=== PATIENT | male | born 1965 ===

== ENCOUNTER 2020-06-17 05:36 | Emergency (ER) | payer BC, SELFPAY ==
[2020-06-17 06:20] VITALS: BP 126/84; PULSE 67; RESP 18; TEMP 36.6; O2SAT 98; BMI 25.8
[2020-06-17 06:25] VITALS: BP 114/87; PULSE 75; RESP 18; TEMP 36.6; O2SAT 97
--- NOTE | 2020-06-17 06:39 | CT_ITS ---
EXAMINATION: CT ABDOMEN AND PELVIS WITHOUT CONTRAST CLINICAL INFORMATION: Flank pain COMPARISON: 03/17/2018 TECHNIQUE: Multidetector volumetric imaging was performed from the superior aspect of the liver through the pubic symphysis. Sagittal and coronal reformatted images were obtained on the technologist's workstation. This CT examination was performed using dose optimization techniques as appropriate, variously including the following: *Automated exposure control *Adjustment of mA and/or kV according to patient size (this includes techniques or standardized protocols for targeted exams where dose is matched to indication/reason for exam; i.e. extremities or head) *Use of iterative reconstruction technique DLP: 537 mGy-cm FINDINGS: LUNG BASES: The visualized lung bases are unremarkable. LIVER, GALLBLADDER, AND BILIARY TREE: The liver is normal in size, shape, and attenuation. No focal hepatic lesion or biliary ductal dilatation is present. The gallbladder is unremarkable with no evidence of radiopaque gallstones, gallbladder wall thickening, or obvious pericholecystic inflammatory changes. PANCREAS: Unremarkable. SPLEEN: Unremarkable. ADRENAL GLANDS: Unremarkable. KIDNEYS AND URETERS: Tiny bilateral nonobstructing renal calculi. On the right, at least 3 tiny stones 1 to 2 mm size upper local calyces. 1 mm left upper pole calyceal nonobstructing stone. No perinephric abnormality. Tiny low-density lesion right kidney statistically a small cyst appearance is similar to baseline. BLADDER: Unremarkable. GASTROINTESTINAL TRACT: The small and large bowel are unremarkable. The appendix is unremarkable. ABDOMINAL WALL: No significant hernia is appreciated. LYMPH NODES: Normal. VASCULAR: Unremarkable. PELVIC VISCERA: Unremarkable. OSSEOUS STRUCTURES: Unremarkable. CT/CT abdomen pelvis wo con IMPRESSION: Nonobstructing right greater than left tiny renal calculi similar to baseline. No new findings.
--- NOTE | 2020-06-17 06:39 | ED.BACK ---
HPI - Back Pain/Injury General Chief Complaint: General Medical Stated Complaint: BACK PAIN Time Seen by Provider: 06/17/20 06:39 Source: patient Mode of arrival: ambulatory Limitations: no limitations History of Present Illness MD elicited complaint: back pain Pertinent past history: prior back pain Onset (ago): week(s) (2) Timing: constant Severity: moderate Similar Symptoms Previously: Yes Quality: burning Location: lumbar spine Radiation: none Exacerbating factors: movement Relieving factors: none Context: unknown Associated symptoms: denies other symptoms Treatments prior to arrival: heat therapy Work related injury: No Related Data Previous Rx's Medication Instructions Recorded cyclobenzaprine 10 mg PO TID PRN #14 tab 06/17/20 ibuprofen 600 mg PO Q6H PRN #30 tab 06/17/20 lidocaine 1 patch TOPICAL DAILY PRN #10 ea 06/17/20 Allergies Allergy/AdvReac Type Severity Reaction Status Date / Time No Known Allergies Allergy Verified 06/17/20 06:19 [No Known Allergies*] Review of Systems Review of Systems: Constitutional : No Weight loss, No Fever, No Chills, ENT/Mouth : No Hearing loss, No Ear Pain, No Nasal Congestion, No Sinus Pain, No Hoarseness, No sore throat, No Rhinorrhea, No Swallowing Difficulty Cardiovascular : No Chest Pain, No SOB Respiratory : No Cough, No Dyspnea Gastrointestinal : No Nausea, No Vomiting, No Diarrhea, No abdominal Pain, No Hematochezia, No Melena Genitourinary : No Dysuria, No Urinary Frequency, No Hematuria, No Urinary Incontinence, Musculoskeletal : positive back pain Skin : No Skin Lesions, No rash Neuro : No Weakness, No Numbness, No Paresthesias, no loss of bowel or bladder incontinence, no saddle anesthesia PMFSH Past Medical History Attestation statement: The following information was validated with the patient. Medical History (Updated 06/17/20 @ 07:26 by Carla Pierre DO) Back pain Kidney stones No known health problems Social History Social History Alcohol intake: never Smoking Status: Current every day smoker Use of substances other than those prescribed or required for medical reasons: No Advance Directives: No Physical Exam Vital Signs: Vital Signs: Last Vital Signs Temp 97.8 F 06/17/20 06:25 Pulse 75 06/17/20 06:25 Resp 18 06/17/20 06:25 BP 114/87 06/17/20 06:25 Pulse Ox 97 06/17/20 06:25 Body Mass Index 25.8 Appearance: Alert. Oriented X3. No acute distress. Eyes: Pupils equal, round and reactive to light. ENT: Pharynx normal. Neck: Normal inspection. Neck supple. CVS: Normal heart rate and rhythm. Pulses normal. Respiratory: No respiratory distress. Breath sounds normal. Abdomen: Soft and nontender. Back: ttp along bilateral lumbar paraspinal area Skin: Skin warm and dry. Normal skin color. Normal skin turgor. Extremities: No lower extremity edema. No calf ttp Neuro: Oriented X 3. No motor deficit. No sensory deficit. Course Course Course Narrative: no acute findings, stable for DC MDM - Back Pain/Injury MDM Narrative Medical decision making narrative: 54 yo male with hx of prior back pain comes in with atraumatic lower back pain - no b/b incontinence, no saddle anesthesia, no IVDA, no ac therapy - wants a CT scan to evalutae his kidneys though no symptoms - imaging ordered, seems MSK to me Discharge Plan Discharge Clinical Impression: Strain of lumbar region Qualifiers: Encounter type: initial encounter Qualified Code(s): S39.012A - Strain of muscle, fascia and tendon of lower back, initial encounter Patient Disposition: Home, Self-Care Instructions: Acute Low Back Pain (ED) Additional Instructions: return to ED for any worsening symptoms or concerns CT scan findings - stones are not the source of your pain IMPRESSION: Nonobstructing right greater than left tiny renal calculi similar to baseline. No new findings. Prescriptions: New cyclobenzaprine 10 mg tablet 10 mg PO TID PRN (Reason: muscle spasm) Qty: 14 RF: 0 lidocaine 4 % adhesive patch,medicated 1 patch topical DAILY PRN (Reason: pain) Qty: 10 RF: 0 ibuprofen 600 mg tablet 600 mg PO Q6H PRN (Reason: pain) Qty: 30 RF: 0 Referrals: Yusra Olivares MD [Primary Care Provider] - 2 days (if not better ) Stand Alone Forms: Work/School Release
== END 2020-06-17 07:52 | disposition home or self-care (01) ==
PROVIDERS: Emergency Provider Emergency Medicine; PCP Internal Medicine
DX: S39.012A Strain of muscle, fascia and tendon of lower back, initial encounter (principal); R10.2 Pelvic and perineal pain; F17.200 Nicotine dependence, unspecified, uncomplicated; X58.XXXA Exposure to other specified factors, initial encounter; Y93.9 Activity, unspecified; Y92.9 Unspecified place or not applicable; Y99.9 Unspecified external cause status; Z71.6 Tobacco abuse counseling; Z79.899 Other long term (current) drug therapy
CPT/HCPCS: 74176; 99284

== ENCOUNTER 2020-06-17 08:16 | Outpatient (REF) | payer BC, SELFPAY | END 2020-06-17 08:17 | disposition home or self-care (01) | LOC: HO.LAB 08:16 | PROVIDERS: Visit Provider Internal Medicine | DX: Z20.828 Contact with and (suspected) exposure to other viral communicable diseases (principal) | CPT/HCPCS: C9803; U0003 ==

== ENCOUNTER 2020-07-28 16:02 | Outpatient (REF) | payer BC, SELFPAY | END 2020-07-28 16:03 | disposition home or self-care (01) | LOC: HO.LAB 16:02 | PROVIDERS: Visit Provider Internal Medicine | DX: Z20.828 Contact with and (suspected) exposure to other viral communicable diseases (principal) | CPT/HCPCS: C9803; U0003 ==

== ENCOUNTER 2020-08-28 16:23 | Outpatient (REF) | payer BC, SELFPAY | END 2020-08-28 16:24 | disposition home or self-care (01) | LOC: HO.LAB 16:23 | PROVIDERS: Visit Provider Internal Medicine | DX: Z20.822 Contact with and (suspected) exposure to COVID-19 (principal) | CPT/HCPCS: 36415; C9803; U0003 ==

== ENCOUNTER → 2020-09-17 10:17 | Outpatient (BNVA) | payer BC, SELFPAY | PROVIDERS: Visit Provider Urology ==

== ENCOUNTER → 2020-10-14 08:21 | Outpatient (BNVA) | payer BC, SELFPAY | PROVIDERS: PCP Internal Medicine; Visit Provider Urology ==

== ENCOUNTER 2020-11-16 07:02 | Outpatient (REF) | payer BC, SELFPAY ==
[2020-11-16 07:54] LABS: MANUAL DIFF FLAG NO
[2020-11-16 08:07] LABS: Basophils Percent Auto 0.4 % (0-2); Eosinophils Absolute Auto 0.1 X10*3/uL (0.0-0.4); Eosinophils Percent Auto 0.9 % (0-4); Hematocrit 48.2 % (42-52); Hemoglobin 15.9 g/dl (14.0-18.0); Imm Gran Abs Auto 0.01 X10*3/uL (0.00-0.03); Imm Gran Pct Auto 0.2 % (0.0-0.4); Lymphocytes Absolute Auto 1.5 X10*3/uL (1.2-4.9); Lymphocytes Percent Auto 27.6 % (20-40); Mean Corpuscular Hemoglobin 30.6 pg (27.0-33.0); Mean Corpuscular Volume 92.7 fL (80-98); Mean Platelet Volume 10.5 fL (9.4-12.4); Monocytes Absolute Auto 0.5 X10*3/uL (0.1-1.2); Monocytes Percent Auto 9.6 % (2-11); Neutrophils Absolute Auto 3.3 X10*3/uL (2.0-8.3); Neutrophils Percent Auto 61.3 % (45-73); Platelet Count 205 X10*3/uL (160-400); Red Cell Distribution Width 13.5 % (11.0-16.0); White Blood Count 5.4 X10*3/uL (4.8-10.8)
[2020-11-16 08:16] LABS: Anion Gap 13 (12-20); Blood Urea Nitrogen 23 mg/dL (9-16); Calcium 8.9 mg/dL (8.4-10.2); Carbon Dioxide 26 mmol/L (22-29); Chloride 105 mmol/L (96-108); Cholesterol 224 mg/dL; Estimated Glomerular Filt Rate > 60; Glucose Fasting 99 mg/dL (60-99); HDL Cholesterol 35 mg/dL; LDL Cholesterol Calculated 170 mg/dl; Potassium 4.4 mmol/L (3.3-5.1); Sodium 140 mmol/L (135-145); Triglycerides 96 mg/dL
[2020-11-16 08:39] LABS: Prostate Specific Antigen 0.65 ng/mL (<0.05-4.0)
[2020-11-16 09:18] LABS: Glucose Urine UA NEG (NEG); Leukocyte Esterase Urine NEG (NEG); Nitrite Urine NEG (NEG); Specific Gravity - Urine 1.025 (1.005-1.025); Urine Blood NEG (NEG); Urine Ketones NEG (NEG); Urine Protein NEG (NEG-TRACE)
[2020-11-16 09:33] LABS: Appearance Urine CLEAR; Color Urine YELLOW
== END 2020-11-16 07:03 | disposition home or self-care (01) ==
LOC: HO.LAB 07:02
PROVIDERS: Nurse Practitioner Family; PCP Internal Medicine; Visit Provider Urology
DX: R30.0 Dysuria (principal); N40.1 Benign prostatic hyperplasia with lower urinary tract symptoms; N13.8 Other obstructive and reflux uropathy; N32.0 Bladder-neck obstruction; R21 Rash and other nonspecific skin eruption; Z12.5 Encounter for screening for malignant neoplasm of prostate
CPT/HCPCS: 36415; 80048; 80061; 81003; 84153; 85025

== ENCOUNTER 2020-11-16 15:12 | Outpatient (REF) | payer BC, SELFPAY ==
--- NOTE | ~2020-11-16 | US_ITS ---
EXAMINATION: US PELVIS LIMITED (BLADDER) CLINICAL INFORMATION: Poor urinary stream. COMPARISON: CT abdomen and pelvis 06/17/2020. X-ray abdomen KUB 02/06/2020. TECHNIQUE: Real-time imaging of the bladder. FINDINGS: BLADDER: The bladder wall is slightly trabeculated. No stone or mass is seen. Bilateral ureteral jets are demonstrated. Prevoid bladder volume is 411 mL. Postvoid bladder volume is 23.9 mL. Prostate volume 16.1 mL. US/US bladder IMPRESSION: Slightly trabeculated bladder wall. No significant post void bladder residual.
== END 2020-11-16 15:13 | disposition home or self-care (01) ==
LOC: HO.US 15:12
PROVIDERS: Visit Provider Urology
DX: N32.0 Bladder-neck obstruction (principal); R39.12 Poor urinary stream
CPT/HCPCS: 76857

== ENCOUNTER → 2020-11-24 15:17 | Outpatient (BNVA) | payer BC, SELFPAY | PROVIDERS: PCP Internal Medicine; Visit Provider Urology | DX: R39.12 Poor urinary stream (principal); R39.11 Hesitancy of micturition; N32.0 Bladder-neck obstruction | CPT/HCPCS: 52000; 52332 ==

== ENCOUNTER 2021-08-06 09:42 | Outpatient (REF) | payer BC, SELFPAY | END 2021-08-06 09:43 | disposition home or self-care (01) | LOC: HO.LAB 09:42 | PROVIDERS: Visit Provider Internal Medicine | DX: Z13.89 Encounter for screening for other disorder (principal) ==

== ENCOUNTER 2022-01-04 05:55 | Outpatient (REF) | payer OTHER, SELFPAY ==
--- NOTE | ~2022-01-04 | XR_ITS ---
EXAMINATION: XR ABDOMEN KUB CLINICAL INDICATION: Renal calculus. COMPARISON: CT scan of 06/17/2020. TECHNIQUE: AP view of the abdomen. FINDINGS: The bowel gas pattern is normal with no evidence of ileus or obstruction. There is a 3 mm calcification seen overlying the upper pole of the right kidney. There is a 2 mm calcification seen overlying the lower pole of the right kidney. No definite calculi are seen overlying the shadow of the left kidney. No definite calculi are identified along the expected paths of the ureters. Psoas muscle contours intact. There is some spurring along the right side of the lumbar vertebra L3 through L5. There is some narrowing about the right lateral aspects of the L4-L5 disc space. There is left-sided facet arthropathy noted at L5-S1. Sacroiliac joints unremarkable. No destructive bony lesions identified. XR/XR KUB IMPRESSION: Right nephrolithiasis.
--- NOTE | ~2022-01-04 | XR_ITS ---
EXAMINATION: XR KNEE, LEFT CLINICAL INFORMATION: Left knee pain. COMPARISON: None. TECHNIQUE: Four views of the left knee. FINDINGS: There is severe narrowing of the medial joint space compartment with marginal sclerosis and spurring. The lateral joint space is maintained. There is a small left knee effusion. There is some degenerative spurring seen about the patellofemoral joint with what appears to be some narrowing of the lateral facet. The lateral view is off lateral. There is a bony density seen adjacent to the right medial condyle which may be related to previous medial collateral ligament injury. XR/XR knee LT 3V IMPRESSION: Severe degenerative change of the medial joint space compartment without evidence of acute fracture identified. Small left knee effusion.
[2022-01-04 08:03] LABS: Alanine Aminotransferase 27 U/L (0-40); Albumin Level 3.9 g/dL (3.5-5.0); Alkaline Phosphatase 68 U/L (39-117); Anion Gap 9 (12-20); Aspartate Amino Transferase 18 U/L (5-37); Bilirubin Total 0.5 mg/dL (0.0-1.0); Blood Urea Nitrogen 22 mg/dL (9-16); Carbon Dioxide 27 mmol/L (22-29); Chloride 108 mmol/L (96-108); Cholesterol 218 mg/dL; Estimated Glomerular Filt Rate > 60; Glucose Fasting 95 mg/dL (60-99); HDL Cholesterol 36 mg/dL; LDL Cholesterol Calculated 168 mg/dl; Potassium 4.3 mmol/L (3.3-5.1); Sodium 140 mmol/L (135-145); Total Protein 6.6 g/dL (6.5-8.0); Triglycerides 74 mg/dL
== END 2022-01-04 05:56 | disposition home or self-care (01) ==
LOC: HO.LAB 05:55
PROVIDERS: PCP Internal Medicine; Visit Provider Internal Medicine
DX: N32.0 Bladder-neck obstruction (principal); N20.0 Calculus of kidney; M25.562 Pain in left knee; E78.5 Hyperlipidemia, unspecified
CPT/HCPCS: 36415; 73562; 74018; 80053; 80061

== ENCOUNTER 2022-01-24 07:32 | Outpatient (REF) | payer OTHER, SELFPAY ==
--- NOTE | ~2022-01-24 | XR_ITS ---
EXAMINATION: XR KNEE AP STANDING CLINICAL INFORMATION: Pain. COMPARISON: Right knee radiographs dated 01/04/2022. TECHNIQUE: AP bilateral standing view of the knees was obtained. FINDINGS: Bony mineralization is normal. The right medial joint space compartment is mildly narrowed, and the lateral joint space compartment is well-maintained. There is mild peripheral osteophyte formation of the medial joint space compartment. The left medial joint space compartment is markedly narrowed, and the lateral joint space compartment is well-maintained. There is mild peripheral osteophyte formation of the medial joint space compartment. No fracture or dislocation is seen. There is a moderate varus configuration of the left knee. XR/XR knee standing BI IMPRESSION: 1. There is mild osteoarthritic change of the medial joint space compartment of the right knee. 2. There is marked osteoarthritic change of the medial joint space compartment the left knee. This is a secondary moderate varus configuration.
== END 2022-01-24 07:33 | disposition home or self-care (01) ==
LOC: HO.HOSX 07:32
PROVIDERS: Visit Provider Physician Assistant
DX: M25.569 Pain in unspecified knee (principal)
CPT/HCPCS: 73565

== ENCOUNTER 2022-02-18 15:32 | Outpatient (REF) | payer OTHER, SELFPAY ==
--- NOTE | ~2022-02-18 | CT_ITS ---
EXAMINATION: CT CHEST SCREENING CLINICAL INFORMATION: Nicotine dependence. COMPARISON: None. TECHNIQUE: Multidetector volumetric CT imaging of the chest is performed without contrast using low dose technique. Additional 2D coronal and sagittal reformatted images and axial 3D maximum intensity projection (MIP) images are generated on the CT workstation. This CT examination was performed using dose optimization techniques as appropriate, variously including the following: *Automated exposure control *Adjustment of mA and/or kV according to patient size (this includes techniques or standardized protocols for targeted exams where dose is matched to indication/reason for exam; i.e. extremities or head) *Use of iterative reconstruction technique DLP: 50 mGy-cm FINDINGS: LUNGS: The lungs are well-expanded and clear of acute pneumonic process. There is 3 mm nodule right lung apex image 62/6 and a 6 mm nodule pleural-based right middle lobe axial image 382/6. No additional nodules are seen. Focal atelectasis in the lingula. MEDIASTINUM: The thyroid lobes are symmetrical. The central trachea and bronchi are widely patent. No abnormal size lymph nodes seen. No abnormal size mediastinal or hilar lymph nodes seen. There is no pericardial effusion. PLEURA: There is no pleural effusion. No pleural mass or thickening. AXILLA: No lymphadenopathy. UPPER ABDOMEN: Visualized liver, spleen and pancreas unremarkable. There is a nonobstructive 5 mm radiopaque calculi upper pole right kidney. OSSEOUS STRUCTURES: No aggressive lytic or sclerotic process seen. There is moderate ventral spondylosis mid and lower dorsal spine. CT/CT lung screening IMPRESSION: Small pulmonary nodules. No abnormal lymphadenopathy. Nonobstructive upper pole right renal calculi. ASSESSMENT: Lung-RADS category 2: Benign RECOMMENDATION: Low-dose annual CT chest.
== END 2022-02-18 15:33 | disposition home or self-care (01) ==
LOC: HO.CT 15:32
PROVIDERS: PCP Internal Medicine; Visit Provider Physician Assistant Medical
DX: Z12.2 Encounter for screening for malignant neoplasm of respiratory organs (principal); F17.210 Nicotine dependence, cigarettes, uncomplicated
CPT/HCPCS: 71271; G0296

== ENCOUNTER 2023-01-14 08:45 | Outpatient (REF) | payer OTHER, SELFPAY ==
[2023-01-14 10:14] LABS: Alanine Aminotransferase 27 U/L (0-40); Albumin Level 4.2 g/dL (3.5-5.0); Alkaline Phosphatase 66 U/L (39-117); Anion Gap 13 (12-20); Aspartate Amino Transferase 22 U/L (5-37); Bilirubin Total 0.7 mg/dL (0.0-1.0); Blood Urea Nitrogen 21 mg/dL (9-16); Calcium 9.2 mg/dL (8.4-10.2); Carbon Dioxide 25 mmol/L (22-29); Chloride 106 mmol/L (96-108); Cholesterol 199 mg/dL; Estimated Glomerular Filt Rate > 60; Glucose Fasting 94 mg/dL (60-99); HDL Cholesterol 36 mg/dL; LDL Cholesterol Calculated 149 mg/dl; Potassium 4.6 mmol/L (3.3-5.1); Sodium 139 mmol/L (135-145); Triglycerides 73 mg/dL
== END 2023-01-14 08:46 | disposition home or self-care (01) ==
LOC: HO.LAB 08:45
PROVIDERS: PCP Internal Medicine; Visit Provider Internal Medicine
DX: E78.5 Hyperlipidemia, unspecified (principal)
CPT/HCPCS: 36415; 80053; 80061

== ENCOUNTER 2023-03-01 15:06 | Outpatient (REF) | payer OTHER, SELFPAY ==
--- NOTE | ~2023-03-01 | CT_ITS ---
EXAMINATION: CT CHEST WITHOUT CONTRAST CLINICAL INFORMATION: Solitary pulmonary nodule COMPARISON: CT lung screening from 02/18/2022 TECHNIQUE: Multidetector volumetric CT imaging of the chest was done. Axial MIP volume rendering provided. Sagittal and coronal reformatted images were obtained. This CT examination was performed using dose optimization techniques as appropriate, variously including the following: *Automated exposure control *Adjustment of mA and/or kV according to patient size (this includes techniques or standardized protocols for targeted exams where dose is matched to indication/reason for exam; i.e. extremities or head) *Use of iterative reconstruction technique DLP: 164 mGy-cm FINDINGS: LUNGS/PLEURA: Redemonstration of 3 mm nodule in the anterior right lung apex (series 5, image 63). Stable pleural-based nodular focus along the anterior aspect of the right middle lobe measuring 6 mm (series 5, image 379) no no enlarged or suspicious pulmonary nodules or masses are noted. Central airways are patent. No thorax. No large pleural effusion. MEDIASTINUM: Heart is not enlarged. No pericardial effusion. No coronary artery calcifications are noted. Aorta is nonaneurysmal and demonstrates atherosclerotic calcifications. Main pulmonary artery is not enlarged. No lymphadenopathy. Visualized portions of the thyroid are unremarkable. AXILLA: No lymphadenopathy. UPPER ABDOMEN: Bilateral renal calculi are noted the largest measuring 4 mm in the right renal upper pole. OSSEOUS STRUCTURES: Mild multilevel degenerative changes of the thoracolumbar spine. CT/CT chest wo IV con IMPRESSION: 1. Redemonstration of 3 mm nodule in the anterior right lung apex. Stable pleural-based nodular focus along the anterior aspect of the right middle lobe measuring 6 mm. Continued follow-up as per Fleischner criteria. 2. No enlarged or suspicious pulmonary nodules or masses are noted. 3. Bilateral nephrolithiasis are noted the largest measuring 4 mm in the right renal upper pole. Various management parameters for solitary pulmonary nodules are in the literature. According to the Fleischner Society, recommendations for pulmonary nodules are as follows: According to the UPDATED 2017 Fleischner Society recommendations, the advised follow-up imaging for multiple solid nodules, the largest measuring 6 mm or greater, is: LOW RISK PATIENT: CT at 3-6 months, then consider CT at 18-24 months. HIGH RISK PATIENT: CT at 3-6 months, then at 18-24 months.
== END 2023-03-01 15:07 | disposition home or self-care (01) ==
LOC: HO.CT 15:06
PROVIDERS: PCP Internal Medicine; Visit Provider Internal Medicine
DX: R91.1 Solitary pulmonary nodule (principal)
CPT/HCPCS: 71250

== ENCOUNTER 2023-05-09 14:36 | Outpatient (AMB) | payer OTHER, SELFPAY ==
--- NOTE | 2023-05-09 14:41 | A.OFFVIS_ITS ---
Intake Vital Signs 05/09/23 14:42 Height 5 ft 8 in Weight 174 lb 2.643 oz BMI 26.5 BP 122/80 Blood Pressure Location Rt brachial Position Sitting Pulse 74 Pulse Source Doppler Pulse Oximetry (%) 97 Oxygen Delivery Method Room Air Intake Visit Reasons: pulm nodule Allergies atorvastatin Allergy (Unknown, Verified 05/09/23 14:45) memory loss HPI pulm nodule HPI Details 57-year-old gentleman, active 40 pack-ye ar smoker referred for evaluation of pulmonary nodules initially noted on lung screening scan in February of 2022, redemonstrated on CT chest in February of 2023. Patient states his brother has a history of thyroid cancer, otherwise there is no history of lung disease or cancers in the family. He denies any other pulmonary related concerns or complaints, particularly dyspnea on exertion, cough or sputum production. He does not have recent pulmonary function testing. [facility] Medical History Dyslipidemia Left knee pain Nephrolithiasis Personal history of nicotine dependence Tubular adenoma of colon (~2018) Surgical History History of colonoscopy Family History Father Chronic mental illness Alzheimers disease Mother Diabetes Paternal Grandmother Hypertension Diabetes Paternal Uncle Diabetes Hypertension Family/Other Chronic mental illness Social History (Updated 05/09/23 @ 14:46 by Susie Lam [facility]) Housing: Apartment Alcohol intake: never Patient Tobacco Use Status: Current everyday Tobacco user Tobacco use type: Cigarette Cigarettes Per Day: 10 Years Smoked: (onset 16yo, 1/2ppd x 40yrs, 20pyh) e-Cigarette/Vaping Use: Never Used Second Hand Smoke Exposure: No service: No Current occupational status: employed Current occupational exposures/hazards: No Cognitive needs: No Hearing needs: No Vision needs: Yes Review of Systems Const Denies daytime sleepiness, Denies excessive sweating, Denies fatigue, Denies fever(s), Denies lethargy, Denies malaise, Denies night sweats, Denies snoring and Denies weight loss Eyes Denies blurry vision and Denies itchy eyes ENT Denies nasal congestion, Denies post nasal drip, Denies sinus pain, Denies sinus pressure and Denies other ( Thrush) Card Denies chest pain, Denies pedal edema, Denies dyspnea, Denies orthopnea and Denies paroxysmal nocturnal dyspnea Resp Denies cough, Denies hemoptysis, Denies excessive phlegm production, Denies dyspnea, Denies snoring and Denies wheezing GI Denies abdominal pain and Denies heartburn Musc Denies myalgias, Denies arthralgias and Denies joint swelling Skin/Breast Denies rash Neuro Denies memory loss and Denies seizure-like activity Psych Denies abnormal sleep pattern, Denies anxiety and Denies memory loss Endo Denies excessive sweating, Denies fatigue and Denies heat intolerance Landen/Lymph Denies easy bruising Aller/Immun Denies itchy eyes, Denies seasonal rhinorrhea and Denies wheezing Physical Exam Vital Signs: Last Vital Signs Pulse 74 05/09/23 14:42 BP 122/80 05/09/23 14:42 Pulse Ox 97 05/09/23 14:42 Oxygen Delivery Method Room Air 05/09/23 14:42 BMI result Body Mass Index 26.5 Const General: no acute distress and alert Nutritional Appearance: not obese Orientation/consciousness: Other orientation findings ( oriented) HEENT Head: Yes atraumatic Eyes General: appearance normal, both eyes and all related structures Sclerae: sclerae normal EOM: EOMs intact bilaterally Neck Neck: Yes supple Lymphatic: no lymphadenopathy noted Resp Effort & Inspection: normal respiratory effort and no use of accessory muscles Auscultation: clear to auscultation bilaterally Cardio Rate: regular rate Rhythm: regular rhythm Heart sounds: no gallops, no murmurs and no rubs Skin General skin exam: other ( warm) Extrem General: No clubbing, No cyanosis and No edema Assessment & Plan Assessment & Plan (1) Pulmonary nodule: Code(s): R91.1 - Solitary pulmonary nodule Plan: Pulmonary nodules stable on follow-up CT chest 6 mm and under. Repeat CT chest in February of 2024. (2) Pulmonary emphysema: Code(s): J43.9 - Emphysema, unspecified Plan: Likely underlying pulmonary emphysema/COPD. Will obtain full PFT. Orders: Orders PFT pulmonary function test Today J43.9 - Emphysema, unspecified CT chest wo IV con 02/07/24 R91.1 - Solitary pulmonary nodule Coding Level of Care Code New Pt Level 4 (42577) Diagnoses Pulmonary nodule R91.1 Pulmonary emphysema J43.9
[2023-05-09 14:42] VITALS: BP 122/80; PULSE 74; O2SAT 97; BMI 26.5
== END 2023-05-09 15:07 | disposition home or self-care (01) ==
PROVIDERS: PCP Internal Medicine; Referring Provider Internal Medicine; Visit Provider Internal Medicine Pulmonary Disease
DX: R91.1 Solitary pulmonary nodule (principal); J43.9 Emphysema, unspecified
CPT/HCPCS: 99204

== ENCOUNTER → 2023-05-09 14:36 | Outpatient (BNVA) | payer OTHER, SELFPAY | PROVIDERS: PCP Internal Medicine; Visit Provider Internal Medicine Pulmonary Disease ==

== ENCOUNTER 2023-06-20 15:46 | Outpatient (REF) | payer OTHER, SELFPAY ==
--- NOTE | 2023-06-20 16:38 | PFT_ITS ---
Forced vital capacity 118%, FEV1 121%, CWD90-15 151%, and MVV 81%. Post bronchodilator therapy, there is no change. Total lung capacity 106%. Residual volume 98%. Diffusion capacity 89%. CONCLUSION: Normal pulmonary function test. No evidence of obstructive or restrictive pulmonary disorder. Also, no response to bronchodilator therapy. MD IRVIN Arredondo/SERGEL / [phone]
== END 2023-06-20 15:47 | disposition home or self-care (01) ==
LOC: HO.RESP 15:46
PROVIDERS: PCP Internal Medicine; Visit Provider Internal Medicine Pulmonary Disease
DX: J43.9 Emphysema, unspecified (principal)
CPT/HCPCS: 94010; 94727; 94729

== ENCOUNTER → 2023-06-20 16:38 | Outpatient (BNV) | payer OTHER, SELFPAY | PROVIDERS: PCP Internal Medicine; Visit Provider Internal Medicine | DX: J43.9 Emphysema, unspecified (principal) | CPT/HCPCS: 94060; 94727; 94729 ==

== ENCOUNTER 2024-01-23 16:54 | Outpatient (AMB) | payer OTHER, SELFPAY ==
[2024-01-23 17:00] VITALS: BP 118/80; BMI 27.4
--- NOTE | 2024-01-23 17:00 | A.OFFPC_ITS ---
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 Accompanied by: Self / Same As Patient Allergies atorvastatin Allergy (Unknown, Verified 01/23/24 17:07) memory loss Medication List - Last Reconciled 01/23/24 by Yusra Gonzalez MD No Known Home Meds Tobacco use date assessed: 01/23/24 Dental Screening Dental Screen Date: 01/23/24 Did you have a dental visit in the last 12 months?: Yes Did you have a dental problem in the last 6 months where you did not have access to dental care?: No Was dental information given to patient?: Patient has dentist HPI HPI Comments History of Present Illness Details This is a 58-year-old male that comes for his physical exam. Last c olonoscopy was 2019 and I will refer him through open access to another colonoscopy in due to tubular adenomas. No chest pain or shortness on breath. He has pulmonary emphysema and is follow by pulmonology. [facility] Medical History Personal history of nicotine dependence Tubular adenoma of colon (~2018) Nephrolithiasis Left knee pain Dyslipidemia Surgical History History of colonoscopy Family History (Updated 01/23/24 @ 17:16 by Yusra Gonzalez MD) Father Chronic mental illness Alzheimers disease Mother Diabetes Paternal Grandmother Hypertension Diabetes Paternal Uncle Diabetes Hypertension Family/Other Chronic mental illness Brother Cancer Social History Housing: Apartment Alcohol intake: never Patient Tobacco Use Status: Former Tobacco user Tobacco use type: Cigarette Cigarettes Per Day: 10 Years Smoked: (onset 16yo, 1/2ppd x 40yrs, 20pyh) Packs per year/per ci.00 e-Cigarette/Vaping Use: Never Used Second Hand Smoke Exposure: No service: No Current occupational status: employed Current occupational exposures/hazards: No Cognitive needs: No Hearing needs: No Vision needs: Yes Questionnaire PHQ-9 Over the last 2 weeks, how often have you been bothered by any of the following problems? 1. Little interest or pleasure in doing things: not at all 2. Feeling down, depressed, or hopeless: several days 3. Trouble falling or staying asleep, or sleeping too much: several days 4. Feeling tired or having little energy: not at all 5. Poor appetite or overeating: several days 6. Feeling bad about yourself - or that you are a failure or have let yourself or your family down: not at all 7. Trouble concentrating on things, such as reading the newspaper or watching te levision: not at all 8. Moving or speaking so slowly that other people could have noticed. Or the opposite - being so fidgety or restless that you have been moving around a lot more than usual: not at all 9. Thoughts that you would be better off or of hurting yourself in some way: not at all Total score: 3 Depression Screening Interpretation: Positive Depression Screening Follow-up: Existing condition and Follow-up Visit Requested Depression Screening Done: Yes 84750 - PHQ-9 Billing: Yes Source: Developed by Drs. Emeterio Knight, Mackenzie Fabian, Alvin Maria and colleagues, with an educational ashish from [employer]. Thrive Questionnaire Date Thrive assessed: 01/23/24 I am a: Patient What is your living situation today?: I have a steady place to live Within the past 12 months, did the food you bought not last and you didn't have the money to get more?: Never true Within the past 12 months, did you worry whether your food would run out before you got money to buy more?: Never true Do you have trouble paying for medicines?: No Do you have trouble getting transportation to medical appointments?: No Do you have trouble paying your heating and electricity bill?: No Do you have trouble taking care of your child, family member or friend?: No Do you have trouble with day-to-day activities such as bathing, preparing meals, shopping, managing finances, etc.?: No Are you currently unemployed and looking for a job?: No Are you interested in more education?: No Please select the resources that you would like help with: None Currently or been in a relationship where the following occur: no concerns reported THRIVE Score: 0 AUDIT C Alcohol Use Questionnaire (AUDIT-C) 1. How often do you have a drink containing alcohol?: Never Total Score: 0 Score Reviewed/Action Taken: No VEL-7 AMB Questionnaire VEL-7 Date VEL - 7 assessed: 01/23/24 Feeling nervous, anxious, or on edge: 1 = Several days Not being able to stop or control worryin = Not at all Worrying too much about different things: 1 = Several days Trouble relaxin = Not at all Being so restless that it is hard to sit still: 0 = Not at all Becoming easily annoyed or irritable: 0 = Not at all Feeling afraid as if something awful might happen: 0 = Not at all Total VEL-7 score (0-4 normal; 5-9 mild; 10-14 moderate; 15-21 severe): 2 Source: Developed by Drs. Emeterio Knight, Mackenzie Fabian, Alvin Maria and colleagues, with an educational ashish from [employer]. VEL-7 Assessment Billing VEL-7 Assessment Tool: VEL-7 Assessment 21763 Review of Systems Const All systems reviewed & are unremarkable except as noted in HPI and below Card Denies chest pain at rest, Denies chest pain with activity, Denies edema, Denies irregular heart rhythm, Denies claudication, Denies dyspnea, Denies dyspnea on exertion, Denies orthopnea, Denies paroxysmal nocturnal dyspnea and Denies slow heart rate Resp Denies cough, Denies dyspnea and Denies dyspnea on exertion GI Denies abdominal pain, Denies change in bowel habits, Denies excessive flatus, Denies nausea and Denies vomiting Denies urinary hesitancy, Denies urinary incontinence and Denies urinary urgency Physical exam (Primary Care) Vital Signs: Last Vital Signs BP 118/80 01/23/24 17:00 BMI result Body Mass Index 27.4 Tobacco/Smoking Status: Tobacco use Status Tobacco use date assessed 01/23/24 01/23/24 17:04 Patient Tobacco Use Status Former Tobacco user 01/23/24 17:04 Tobacco use type Cigarette 01/23/24 17:04 e-Cigarette/Vaping Use Never Used 01/23/24 17:04 PHQ-9: PHQ-9 Score PHQ-9: Total score 3 01/23/24 17:16 Depression Screening Interpretation: Positive Depression Screening Follow-up: Existing condition and Follow-up Visit Requested Thrive Assessment: Date of Thrive Assessment Date Thrive assessed 01/23/24 01/23/24 17:04 Currently or been in a relationship where the following occur: no concerns reported Const Orientation/consciousness: patient oriented x3 [facility] Head: Yes normal to inspection, Yes normocephalic and Yes atraumatic Ears: external ears normal Eyes General: appearance normal, both eyes and all related structures Eyelids: Yes eyelids normal Conjunctivae: conjunctivae normal Neck Neck: Yes normal visual inspection and Yes supple Resp Effort & Inspection: normal respiratory effort Auscultation: clear to auscultation bilaterally Cardio Jugular venous distension: no JVD Rate: regular rate Rhythm: regular rhythm Heart sounds: S1 normal heart sound present and S2 normal heart sound present GI Inspection: Yes normal to inspection Palpation (GI): Soft to palpation and nontender Auscultation: normal bowel sounds Skin General skin exam: no rashes or lesions noted Neuro General: patient oriented x3 and no focal motor deficits Extrem General: Yes full ROM Psych Appearance: grossly normal Assessment and Plan Assessment & Plan (1) Physical exam: Code(s): Z00.00 - Encounter for general adult medical examination without abnormal findings Plan: Repeat in a year. (2) Pulmonary emphysema: Code(s): J43.9 - Emphysema, unspecified Plan: Follow-up with pulmonology. Orders: Orders Lipid Panel Today E78.5 - Hyperlipidemia, unspecified Comprehensive [place]. Panel Fast Today J43.9 - Emphysema, unspecified Referrals Open Access Screening Colonoscopy Referral Z12.11 - Encounter for screening for malignant neoplasm of colon Coding Level of Care Code Est Pt Prev Care 40-64y(50827) Diagnoses Physical exam Z00.00 Pulmonary emphysema J43.9 Additional Codes VEL-7 Assessment Billing - VEL-7 Assessment Tool: VEL-7 Assessment [id number] ([id number]) Time Spent (min) 32
== END 2024-01-23 17:45 | disposition home or self-care (01) ==
PROVIDERS: PCP Internal Medicine; Visit Provider Internal Medicine
DX: Z00.00 Encounter for general adult medical examination without abnormal findings (principal); J43.9 Emphysema, unspecified
CPT/HCPCS: 99396

== ENCOUNTER 2024-02-12 07:35 | Outpatient (REF) | payer OTHER, SELFPAY ==
[2024-02-12 09:21] LABS: Alanine Aminotransferase 27 U/L (0-40); Albumin Level 4.1 g/dL (3.5-5.0); Alkaline Phosphatase 71 U/L (39-117); Anion Gap 13 (12-20); Aspartate Amino Transferase 21 U/L (5-37); Bilirubin Total 0.5 mg/dL (0.0-1.0); Blood Urea Nitrogen 17 mg/dL (9-16); Calcium 8.9 mg/dL (8.4-10.2); Carbon Dioxide 26 mmol/L (22-29); Chloride 106 mmol/L (96-108); Cholesterol 233 mg/dL (<200); Estimated Glomerular Filt Rate > 60; Glucose Fasting 95 mg/dL (60-99); HDL Cholesterol 42 mg/dL (>40); LDL Cholesterol Calculated 166 mg/dL (<100); Potassium 3.9 mmol/L (3.3-5.1); Sodium 141 mmol/L (135-145); Triglycerides 129 mg/dL (<150)
== END 2024-02-12 07:36 | disposition home or self-care (01) ==
LOC: HO.LAB 07:35
PROVIDERS: PCP Internal Medicine; Visit Provider Internal Medicine
DX: J43.9 Emphysema, unspecified (principal); E78.5 Hyperlipidemia, unspecified
CPT/HCPCS: 36415; 80053; 80061

== ENCOUNTER 2024-02-19 16:43 | Outpatient (REF) | payer OTHER, SELFPAY ==
--- NOTE | ~2024-02-19 | CT_ITS ---
EXAMINATION: CT CHEST WITHOUT CONTRAST CLINICAL INFORMATION: Follow-up pulmonary nodule COMPARISON: 03/01/[address] high-res, [facility] chest CT 02/18/2022. TECHNIQUE: Multidetector volumetric CT imaging of the chest was done. Axial MIP volume rendering provided. Sagittal and coronal reformatted images were obtained. This CT examination was performed using dose optimization techniques as appropriate, variously including the following: *Automated exposure control *Adjustment of mA and/or kV according to patient size (this includes techniques or standardized protocols for targeted exams where dose is matched to indication/reason for exam; i.e. extremities or head) *Use of iterative reconstruction technique DLP: 361 mGy-cm FINDINGS: PULMONARY NODULES: -3 mm nodule anterior right apex, (series 6, image 105), unchanged. -5 mm pleural-based nodule right middle lobe anteriorly, stable when measured similarly (series 6, image 477). -No left-sided nodules. -There are no new nodules or enlarging nodules. LUNGS: -Mild centrilobular emphysema. -Tiny peribronchial inflammatory focus posterior segment left upper lobe (series 6 image 325), with a small focus of tree-in-bud nodularity. -Small focus of scarring in the inferolateral right middle lobe, and minimal in the lingula and posterior costophrenic sulci bilaterally. -2 small foci of right lower lobe superior segment posterior pleural atelectasis. -There is minimal bronchiectasis in both lower lobe distributions, without endobronchial filling defect or bronchial wall thickening. -The trachea and mainstem bronchi are normal. PLEURA: There is no pleural effusion. There is no pneumothorax. MEDIASTINUM: -Normal thyroid gland. -There are small non-pathologically enlarged mediastinal lymph nodes, presumably reactive. No pathologically enlarged nodes. This is unchanged. -Aorta is minimally calcified without evidence of aneurysm, and is normal in course. Three-vessel branching pattern. -Main pulmonary artery is normal in size. -Normal heart size. No pericardial effusion. -Esophagus appears normal. There is a probable small type I hiatus hernia. CORONARY ARTERY CALCIFICATION: None visualized on this study. AXILLA/CHEST WALL: No masses or lymphadenopathy present. UPPER ABDOMEN: -Nonobstructing renal calculus in the superior right kidney measuring 5 mm in diameter. Imaged kidneys otherwise normal. -Normal adrenal glands. -No additional abnormalities. OSSEOUS STRUCTURES: No suspicious lytic or blastic bony abnormalities. Mild spondylosis of the thoracic spine. CT/CT chest wo IV con IMPRESSION: 1. Stable small right-sided pulmonary nodules measuring up to 5 mm. No new or enlarging nodules. Follow-up in one year per Fleischner guidelines. 2. Mild centrilobular emphysema. Small subtle focus of tree-in-bud inflammation in the posterior segment left upper lobe. Otherwise, no active lung disease. 3. No abnormal lymphadenopathy. 4. Small type I hiatus hernia. 5. Nonobstructing right renal calculus measuring 5 mm. 6. Additional ancillary findings as discussed in the body of the report. Fleischner guidelines were followed.
== END 2024-02-19 16:44 | disposition home or self-care (01) ==
LOC: HO.CT 16:43
PROVIDERS: PCP Internal Medicine; Visit Provider Internal Medicine Pulmonary Disease
DX: R91.1 Solitary pulmonary nodule (principal)
CPT/HCPCS: 71250

== ENCOUNTER → 2024-02-19 16:47 | Outpatient (BNV) | payer OTHER, SELFPAY | PROVIDERS: PCP Internal Medicine; Visit Provider Radiology Diagnostic Radiology | DX: R91.1 Solitary pulmonary nodule (principal) | CPT/HCPCS: 71250 ==

== ENCOUNTER 2024-03-20 13:42 | Outpatient (AMB) | payer OTHER, SELFPAY ==
[2024-03-20 13:49] VITALS: BP 132/74; PULSE 71; O2SAT 98; BMI 27.7
--- NOTE | 2024-03-20 13:49 | MHC.OFFVIS ---
Vital Signs 03/20/24 13:49 Height 5 ft 8 in Weight 182 lb BMI 27.7 BP 132/74 Blood Pressure Location Rt brachial Position Sitting Pulse 71 Pulse Source Doppler Pulse Oximetry (%) 98 Oxygen Delivery Method Room Air Intake Visit Reasons: Pulm Nodule/CT Follow Up Allergies atorvastatin Allergy (Unknown, Verified 01/23/24 17:07) memory loss HPI HPI Pulm Nodule/CT Follow Up: Details: 58-year-old gentleman, active 40 pack-year smoker referred for evaluation of pulmonary nodules initially noted on lung screening scan in February of 2022, redemonstrated on CT chest in February of 2023. Patient states his brother has a history of thyroid cancer, otherwise there is no history of lung disease or cancers in the family. He denies any other pulmonary related concerns or complaints, particularly dyspnea on exertion, cough or sputum production. His recent pulmonary function test is essentially normal. He does complain of intermittent episodes of chest tightness/shortness of breath not particularly related to exertion. He completed his follow-up CT chest that does not show worrisome nodules at this time. [facility] Medical History Personal history of nicotine dependence Tubular adenoma of colon (~2018) Nephrolithiasis Left knee pain Dyslipidemia Surgical History History of colonoscopy Family History (Updated 01/23/24 @ 17:16 by Yusra Gonzalez MD) Father Chronic mental illness Alzheimers disease Mother Diabetes Paternal Grandmother Hypertension Diabetes Paternal Uncle Diabetes Hypertension Family/Other Chronic mental illness Brother Cancer Social History Housing: Apartment Alcohol intake: never Patient Tobacco Use Status: Former Tobacco user Tobacco use type: Cigarette Cigarettes Per Day: 10 Years Smoked: (onset 16yo, 1/2ppd x 40yrs, 20pyh) e-Cigarette/Vaping Use: Never Used Second Hand Smoke Exposure: No service: No Current occupational status: employed Current occupational exposures/hazards: No Cognitive needs: No Hearing needs: No Vision needs: Yes Review of Systems Const Denies daytime sleepiness, Denies excessive sweating, Denies fatigue, Denies fever(s), Denies lethargy, Denies malaise, Denies night sweats, Denies snoring and Denies weight loss Eyes Denies blurry vision and Denies itchy eyes ENT Denies nasal congestion, Denies post nasal drip, Denies sinus pain, Denies sinus pressure and Denies other ( Thrush) Card Denies chest pain, Denies pedal edema, Denies dyspnea, Denies orthopnea and Denies paroxysmal nocturnal dyspnea Resp Denies cough, Denies hemoptysis, Denies excessive phlegm production, Denies dyspnea, Denies snoring and Denies wheezing GI Denies abdominal pain and Denies heartburn Musc Denies myalgias, Denies arthralgias and Denies joint swelling Skin/Breast Denies rash Neuro Denies memory loss and Denies seizure-like activity Psych Denies abnormal sleep pattern, Denies anxiety and Denies memory loss Endo Denies excessive sweating, Denies fatigue and Denies heat intolerance Landen/Lymph Denies easy bruising Aller/Immun Denies itchy eyes, Denies seasonal rhinorrhea and Denies wheezing Physical Exam Vital Signs: Last Vital Signs Pulse 71 03/20/24 13:49 BP 132/74 03/20/24 13:49 Pulse Ox 98 03/20/24 13:49 Oxygen Delivery Method Room Air 03/20/24 13:49 BMI result Body Mass Index 27.7 Const General: no acute distress and alert Nutritional Appearance: not obese Orientation/consciousness: Other orientation findings ( oriented) HEENT Head: Yes atraumatic Eyes General: appearance normal, both eyes and all related structures Sclerae: sclerae normal EOM: EOMs intact bilaterally Neck Neck: Yes supple Lymphatic: no lymphadenopathy noted Resp Effort & Inspection: normal respiratory effort and no use of accessory muscles Auscultation: clear to auscultation bilaterally Cardio Rate: regular rate Rhythm: regular rhythm Heart sounds: no gallops, no murmurs and no rubs Skin General skin exam: other ( warm) Extrem General: No clubbing, No cyanosis and No edema Assessment & Plan Assessment & Plan (1) Pulmonary emphysema: Code(s): J43.9 - Emphysema, unspecified Category: Medical Plan: Intermittently symptomatic with episodes of chest tightness/shortness of breath. Will start on as needed albuterol MDI. (2) Personal history of nicotine dependence: Comment: (current smoker - onset 16yo, 1/2ppd x 40yrs, 20pyh) Code(s): Z87.891 - Personal history of nicotine dependence Category: Medical Plan: Results of follow-up CT chest not available for this visit, images reviewed by me and does not show worrisome nodules at this time. Continue with yearly screening. Medications: New albuterol sulfate 90 mcg/actuation 2 puffs inhalation 6XD PRN 1 ea 0RF shortness of breath or wheezing Coding Level of Care Code Est Pt Level 4 (44075) Diagnoses Pulmonary emphysema J43.9 Personal history of nicotine dependence Z87.891
== END 2024-03-20 14:06 | disposition home or self-care (01) ==
PROVIDERS: PCP Internal Medicine; Visit Provider Internal Medicine Pulmonary Disease
DX: J43.9 Emphysema, unspecified (principal); Z87.891 Personal history of nicotine dependence
CPT/HCPCS: 99214

== ENCOUNTER → 2024-03-20 13:42 | Outpatient (BNVA) | payer OTHER, SELFPAY | PROVIDERS: PCP Internal Medicine; Visit Provider Internal Medicine Pulmonary Disease ==

== ENCOUNTER 2025-02-10 16:19 | Outpatient (AMB) | payer OTHER, SELFPAY ==
--- NOTE | 2025-02-10 16:51 | A.OFFPC_ITS ---
Vital Signs 02/10/25 16:53 Height 5 ft 8 in Weight 179 lb BMI 27.2 BP 120/80 Blood Pressure Location Lt brachial Position Sitting Intake Visit Reasons: Annual Exam Intake Note: Patient here for a physical exam Digital Librarian Required: No Accompanied by: Self / Same As Patient Allergies atorvastatin Allergy (Unknown, Verified 02/10/25 16:58) memory loss Medication List - Last Reconciled 02/10/25 by Yusra Gonzalez MD albuterol sulfate 90 mcg/actuation 2 puffs inhalation 6XD PRN naproxen 500 mg PO BID PRN 30 days simvastatin 20 mg PO BEDTIME 90 days Tobacco use date assessed: 02/10/25 Dental Screening Dental Screen Date: 02/10/25 Did you have a dental visit in the last 12 months?: Yes Did you have a dental problem in the last 6 months where you did not have access to dental care?: No Was dental information given to patient?: Patient has dentist HPI HPI Comments 2 History of Present Illness Details The patient is a 59-year-old male presenting for an annual physical examination. The patient has a known allergy to atorvastatin, which has been documented previously. He is currently not taking simvastatin for hyperlipidemia, despite it being prescribed, due to personal choice. His cholesterol levels were noted to be elevated during the last assessment, necessitating laboratory follow-up. The patient has a history of psoriasis, which is currently not widespread and is managed with topical treatments as needed. He has a history of nephrolithiasis, with plans to undergo an ultrasound to assess the current status of renal calculi. Depending on the findings, a referral to urology may be considered. In terms of preventative care, the patient underwent a colonoscopy in 2019 and has received reminders for follow-up appointments. [facility] Medical History (Updated 02/10/25 @ 20:34 by Yusra Gonzalez MD) Personal history of nicotine dependence Tubular adenoma of colon (~2018) Nephrolithiasis Left knee pain Dyslipidemia Surgical History History of colonoscopy Family History Father Chronic mental illness Alzheimers disease Mother Diabetes Paternal Grandmother Hypertension Diabetes Paternal Uncle Diabetes Hypertension Family/Other Chronic mental illness Brother Cancer Social History (Updated 02/10/25 @ 17:02 by Yusra Gonzalez MD) Housing: Apartment Alcohol intake: former Patient Tobacco Use Status: Former Tobacco user Tobacco use type: Cigarette Cigarettes Per Day: 10 Years Smoked: (onset 16yo, 1/2ppd x 40yrs, 20pyh) e-Cigarette/Vaping Use: Never Used Second Hand Smoke Exposure: No service: No Current occupational status: employed Current occupational exposures/hazards: No Cognitive needs: No Hearing needs: No Vision needs: Yes Questionnaire PHQ-9 Over the last 2 weeks, how often have you been bothered by any of the following problems? 1. Little interest or pleasure in doing things: not at all 2. Feeling down, depressed, or hopeless: not at all 3. Trouble falling or staying asleep, or sleeping too much: not at all 4. Feeling tired or having little energy: nearly every day 5. Poor appetite or overeating: not at all 6. Feeling bad about yourself - or that you are a failure or have let yourself or your family down: not at all 7. Trouble concentrating on things, such as reading the newspaper or watching television: not at all 8. Moving or speaking so slowly that other people could have noticed. Or the opposite - being so fidgety or restless that you have been moving around a lot more than usual: not at all 9. Thoughts that you would be better off or of hurting yourself in some way: not at all Total score: 3 Depression Screening Interpretation: Positive Depression Screening Follow-up: Existing condition and Follow-up Visit Requested Depression Screening Done: Yes 39485 - PHQ-9 Billing: Yes Source: Developed by Drs. Emeterio Knight, Mackenzie Fabian, Alvin Maria and colleagues, with an educational ashish from [employer]. Thrive Questionnaire Date Thrive assessed: 02/10/25 I am a: Patient What is your living situation today?: I have a steady place to live Within the past 12 months, did the food you bought not last and you didn't have the money to get more?: I choose not to answer this question Within the past 12 months, did you worry whether your food would run out before you got money to buy more?: I choose not to answer this question Do you have trouble paying for medicines?: No Do you have trouble getting transportation to medical appointments?: No Do you have trouble paying your heating and electricity bill?: No Do you have trouble taking care of your child, family member or friend?: No Do you have trouble with day-to-day activities such as bathing, preparing meals, shopping, managing finances, etc.?: No Are you currently unemployed and looking for a job?: No Are you interested in more education?: No Please select the resources that you would like help with: None Currently or been in a relationship where the following occur: I choose not to answer THRIVE Score: 0 AUDIT C Alcohol Use Questionnaire (AUDIT-C) 1. How often do you have a drink containing alcohol?: Never Total Score: 0 Score Reviewed/Action Taken: No VEL-7 AMB Questionnaire VEL-7 Date VEL - 7 assessed: 02/10/25 Feeling nervous, anxious, or on edge: 1 = Several days Not being able to stop or control worryin = Not at all Worrying too much about different things: 0 = Not at all Trouble relaxin = Not at all Being so restless that it is hard to sit still: 1 = Several days Becoming easily annoyed or irritable: 0 = Not at all Feeling afraid as if something awful might happen: 0 = Not at all Total VEL-7 score (0-4 normal; 5-9 mild; 10-14 moderate; 15-21 severe): 2 Source: Developed by Drs. Emeterio Knight, Mackenzie Fabian, Alvin Maria and colleagues, with an educational ashish from [employer]. VEL-7 Assessment Billing VEL-7 Assessment Tool: VEL-7 Assessment 65838 Review of Systems Const All systems reviewed & are unremarkable except as noted in HPI and below Card Denies chest pain at rest, Denies chest pain with activity, Denies edema, Denies irregular heart rhythm, Denies claudication, Denies dyspnea, Denies dyspnea on exertion, Denies orthopnea, Denies paroxysmal nocturnal dyspnea and Denies slow heart rate Resp Denies cough, Denies dyspnea and Denies dyspnea on exertion GI Denies abdominal pain, Denies change in bowel habits, Denies excessive flatus, Denies nausea and Denies vomiting Neuro Denies lack of coordination Physical exam (Primary Care) Vital Signs: Last Vital Signs BP 120/80 02/10/25 16:53 BMI result Body Mass Index 27.2 Tobacco/Smoking Status: Tobacco use Status Tobacco use date assessed 02/10/25 02/10/25 16:57 Patient Tobacco Use Status Former Tobacco user 02/10/25 17:02 Tobacco use type Cigarette 02/10/25 17:02 e-Cigarette/Vaping Use Never Used 02/10/25 17:02 PHQ-9: PHQ-9 Score PHQ-9: Total score 3 02/10/25 17:00 Depression Screening Interpretation: Positive Depression Screening Follow-up: Existing condition and Follow-up Visit Requested Thrive Assessment: Date of Thrive Assessment Date Thrive assessed 02/10/25 02/10/25 16:57 Currently or been in a relationship where the following occur: I choose not to answer HENMT Head: Yes normal to inspection, Yes normocephalic and Yes atraumatic Ears: external ears normal Eyes General: appearance normal, both eyes and all related structures Eyelids: Yes eyelids normal Conjunctivae: conjunctivae normal Neck Neck: Yes normal visual inspection and Yes supple Resp Effort & Inspection: normal respiratory effort Auscultation: clear to auscultation bilaterally Cardio Jugular venous distension: no JVD Rate: regular rate Rhythm: regular rhythm Heart sounds: S1 normal heart sound present and S2 normal heart sound present GI Inspection: Yes normal to inspection Palpation (GI): Soft to palpation and nontender Auscultation: normal bowel sounds Skin General skin exam: no rashes or lesions noted Neuro General: no focal motor deficits Extrem General: Yes full ROM Psych Appearance: grossly normal Coding Level of Care Code Est Pt Level 3 (01096) Est Pt Prev Care 40-64y(94069) Diagnoses Physical exam Z00.00 Nephrolithiasis N20.0 Pulmonary emphysema J43.9 Additional Codes VEL-7 Assessment Billing - VEL-7 Assessment Tool: VEL-7 Assessment 02662 ([id number]) PHQ-9 - 27303 - PHQ-9 Billing: Yes ([id number]) Time Spent (min) 33 Assessment & Plan Assessment & Plan (1) Physical exam: Code(s): Z00.00 - Encounter for general adult medical examination without abnormal findings Category: Medical (2) Nephrolithiasis: Code(s): N20.0 - Calculus of kidney Category: Medical (3) Pulmonary emphysema: Code(s): J43.9 - Emphysema, unspecified Category: Medical Plan The patient will undergo laboratory testing to monitor cholesterol levels due to previous elevation. An ultrasound is planned to evaluate the current status of nephrolithiasis, with a potential referral to urology based on the findings. For psoriasis, topical treatments will continue as needed, given the limited spread of the condition. Preventative care measures include ensuring follow-up for colonoscopy, with the last one performed in 2019. Patient was informed and verbally consented to the use of an ambient scribe for clinic note documentation during this visit. Orders: Orders US renal BI Today N20.0 - Calculus of kidney Comprehensive [place]. Panel Fast Today E78.5 - Hyperlipidemia, unspecified Lipid Panel Today E78.5 - Hyperlipidemia, unspecified Referrals Open Access Screening Colonoscopy Referral Z12.12 - Encounter for screening f or malignant neoplasm of rectum Medications: New betamethasone valerate 0.1% 1 appl topical DAILY PRN 45 grams 1RF skin irritation 30 days Discontinued simvastatin Discontinued Reason: Patient Completed Course 20 mg PO BEDTIME 90 days 90 tabs 0RF
[2025-02-10 16:53] VITALS: BP 120/80; BMI 27.2
== END 2025-02-10 17:11 | disposition home or self-care (01) ==
LOC: HO.HMCH 16:20
PROVIDERS: PCP Internal Medicine; Visit Provider Internal Medicine
DX: Z00.00 Encounter for general adult medical examination without abnormal findings (principal); N20.0 Calculus of kidney; J43.9 Emphysema, unspecified

== ENCOUNTER → 2025-02-10 16:19 | Outpatient (BNVA) | payer OTHER, SELFPAY | PROVIDERS: PCP Internal Medicine; Visit Provider Internal Medicine | DX: Z00.00 Encounter for general adult medical examination without abnormal findings (principal); N20.0 Calculus of kidney; J43.9 Emphysema, unspecified | CPT/HCPCS: 96127 ==

== ENCOUNTER 2025-02-17 06:31 | Outpatient (REF) | payer OTHER, SELFPAY ==
[2025-02-17 08:04] LABS: Alanine Aminotransferase 31 U/L (0-40); Albumin Level 4.1 g/dL (3.5-5.0); Alkaline Phosphatase 67 U/L (39-117); Anion Gap 10 (12-20); Aspartate Amino Transferase 30 U/L (5-37); Blood Urea Nitrogen 20 mg/dL (9-16); Calcium 8.5 mg/dL (8.4-10.2); Carbon Dioxide 24 mmol/L (22-29); Chloride 110 mmol/L (96-108); Cholesterol 214 mg/dL (<200); Estimated Glomerular Filt Rate > 60; HDL Cholesterol 36 mg/dL (>40); Potassium 3.7 mmol/L (3.3-5.1); Sodium 140 mmol/L (135-145); Total Protein 6.8 g/dL (6.5-8.0); Triglycerides 83 mg/dL (<150)
== END 2025-02-17 06:32 | disposition home or self-care (01) ==
LOC: HO.LAB 06:31
PROVIDERS: PCP Internal Medicine; Visit Provider Internal Medicine
DX: E78.5 Hyperlipidemia, unspecified (principal)
CPT/HCPCS: 36415; 80053; 80061

== ENCOUNTER 2025-03-24 15:39 | Outpatient (REF) | payer OTHER, SELFPAY ==
--- NOTE | ~2025-03-24 | US_ITS ---
EXAMINATION: US RETROPERITONEAL LIMITED (RENAL ONLY) CLINICAL INFORMATION: Calculus of kidney. Poor urinary stream. COMPARISON: CT abdomen and pelvis 06/17/2020. TECHNIQUE: Vertebral imaging of kidneys was performed. FINDINGS: RIGHT KIDNEY: 11.6 x 5.8 x 5.7 cm (SAG x AP x TRV). The kidney is normal in size, contour, and echogenicity. Renal cortical thickness is normal. There is anechoic cyst measuring 1.3 x 1.2 x 1.3 cm. No additional cysts, solid mass or hydronephrosis seen. LEFT KIDNEY: 10.5 x 5.9 the 4.8 cm (SAG x AP x TRV). The kidney is normal in size, contour, and echogenicity. Renal cortical thickness is normal. There are multiple echogenic foci question tiny calcifications versus stones. No hydronephrosis seen. No cyst or solid mass seen. US/US renal BI IMPRESSION: Multiple small echogenic foci left kidney question tiny stone versus calcification. Tiny stones are visualized on the previous CT abdomen and pelvis exam 06/17/2020. Electronically signed by: Angelo Ryan MD 03/25/2025 07:18 AM EDT
== END 2025-03-24 15:40 | disposition home or self-care (01) ==
LOC: HO.US 15:39
PROVIDERS: PCP Internal Medicine; Visit Provider Internal Medicine
DX: N20.0 Calculus of kidney (principal)
CPT/HCPCS: 76775

== ENCOUNTER → 2025-03-24 15:41 | Outpatient (BNV) | payer OTHER, SELFPAY | PROVIDERS: PCP Internal Medicine; Visit Provider Radiology Diagnostic Radiology | DX: N20.0 Calculus of kidney (principal); R93.422 Abnormal radiologic findings on diagnostic imaging of left kidney | CPT/HCPCS: 76775 ==

== ENCOUNTER 2025-05-26 09:27 | Day surgery (SDC) | payer OTHER, SELFPAY ==
[2025-05-22 13:02] VITALS: BMI 27.2
--- NOTE | 2025-05-23 09:29 | HO.ANESPROP2 ---
Documented by User: Ciarra Kirby NP 05/23/25 09:30 HPI - Anesthesia Eval Consult details Narrative: 59yo M for Colonoscopy PMFSH Active Problems Active Problems: All Active Problems Physical exam (Acute) Pulmonary emphysema (Acute) Pulmonary nodule (Acute) Osteoarthritis of left knee (Acute) Left knee pain (Acute) Bladder outlet obstruction (Acute) Weak urinary stream (Acute) Urinary hesitancy (Acute) Personal history of nicotine dependence (Acute) Dyslipidemia (Acute) Nephrolithiasis (Acute) Past Medical History Medical History (Updated 05/22/25 @ 12:56 by Marla Montelongo RN) Dyslipidemia Osteoarthritis Pulmonary nodule Personal history of nicotine dependence Tubular adenoma of colon (~2019) Nephrolithiasis Dyslipidemia Family History Family History Father Chronic mental illness Alzheimers disease Mother Diabetes Paternal Grandmother Hypertension Diabetes Paternal Uncle Diabetes Hypertension Family/Other Chronic mental illness Brother Cancer Surgical History Surgical History History of colonoscopy Social History Social History (Updated 02/10/25 @ 17:02 by Yusra Gonzalez MD) Housing: Apartment Alcohol intake: former Patient Tobacco Use Status: Former Tobacco user Tobacco use type: Cigarette Cigarettes Per Day: 10 Years Smoked: (onset 16yo, 1/2ppd x 40yrs, 20pyh) e-Cigarette/Vaping Use: Never Used Second Hand Smoke Exposure: No Use of substances other than those prescribed or required for medical reasons: No Advance Directives: No Advance Directives Information Provided: Yes service: No Current occupational status: employed Current occupational exposures/hazards: No Cognitive needs: No Hearing needs: No Vision needs: Yes Meds Allergies Allergy/AdvReac Type Severity Reaction Status Date / Time atorvastatin Allergy Unknown memory loss Verified 02/10/25 16:58 Exam Height,Weight and Vital Signs: Height 5 ft 8 in Weight 81.193 kg Assessment and Plan Assessment Anesthesia Assessment: Chart Reviewed Documented by User: Regina Burris MD 05/26/25 10:34 PMFSH Past Medical History Medical History (Updated 05/22/25 @ 12:56 by Marla Montelongo RN) Dyslipidemia Osteoarthritis Pulmonary nodule Personal history of nicotine dependence Tubular adenoma of colon (~2019) Nephrolithiasis Dyslipidemia Family History Family History Father Chronic mental illness Alzheimers disease Mother Diabetes Paternal Grandmother Hypertension Diabetes Paternal Uncle Diabetes Hypertension Family/Other Chronic mental illness Brother Cancer Family history of problems with anesthesia: No Surgical History Surgical History History of colonoscopy History of Problems with Anesthesia: No Social History Social History (Updated 02/10/25 @ 17:02 by Yusra Gonzalez MD) Housing: Apartment Alcohol intake: former Patient Tobacco Use Status: Former Tobacco user Tobacco use type: Cigarette Cigarettes Per Day: 10 Years Smoked: (onset 16yo, 1/2ppd x 40yrs, 20pyh) e-Cigarette/Vaping Use: Never Used Second Hand Smoke Exposure: No Use of substances other than those prescribed or required for medical reasons: No Advance Directives: No Advance Directives Information Provided: Yes service: No Current occupational status: employed Current occupational exposures/hazards: No Cognitive needs: No Hearing needs: No Vision needs: Yes Meds Allergies Allergy/AdvReac Type Severity Reaction Status Date / Time atorvastatin Allergy Unknown memory loss Verified 02/10/25 16:58 Exam Airway Mallampati Class: II TM Dist: >3cm Neck ROM: Full Heart: rrr Lungs: cta Assessment and Plan Assessment Anesthesia Assessment: Anesthesia Plan Discussed Final Anesthetic Review Family History of Problems with Anesthesia: No History of Problems with Anesthesia: No NPO: Yes ASA Class: II Final Preanesthetic Review: No Changes in Pt Med Stat, Meds/Allgs Chart Reviewed and Consent Obtained/Reviewed Patient Risk: Low Procedure Risk: Low Anesthetic Plan Anesthetic Plan: MAC: Disposition: Standard PACU
--- NOTE | 2025-05-26 09:53 | MHC.SHP ---
Pre-Procedural Eval Section A - 24 Hr Update-Section A only Date of Service: 05/26/25 The patient is an INPATIENT: No The patient has been examined within 24 hours of the surgical procedure. The History & Physical has been completed within 30 days and I have reviewed it.: No Section B - Complete if H&P > 30 days Chief Complaint: Surveillance for colon polyps Relevant Family History (Specify if Yes): No Relevant Social History: Tobacco Use (Former smoker) Present Medications: see Short Stay Collaborative assessment Medical History: Significant History (Tubular adenoma of colon (~2019) Nephrolithiasis Left knee pain Dyslipidemia) History of Previous Operations: Relevant previous surgery/procedure and date(s) (History of colonoscopy) Allergies: Allergies Allergy/AdvReac Type Severity Reaction Status Date / Time atorvastatin Allergy Unknown memory loss Verified 02/10/25 16:58 Review of Systems Sugical H&P ROS: Negative: Constitution, Cardiovascular, Respiratory and Gastrointestinal Exam Surgical H&P Exam: Normal: Heart, Normal: Lungs, Normal: Extremities and Normal: Abdomen Plan Diagnosis/Plan: Unchanged I have reviewed the history and physical and performed a pertinent physical examination on my patient. No changes have occurred unless specified. Time Spent With Patient Time: Total time managing care of this patient today ____ minutes.
[2025-05-26 10:07] VITALS: BMI 25.6
[2025-05-26 10:26] VITALS: BP 137/82; PULSE 60; RESP 16; TEMP 36.6; O2SAT 97
[2025-05-26] MEDS: Lactated Ringers 1,000 ML 100 ML IVCONT (10:27)
--- NOTE | 2025-05-26 12:29 | HO.OPN-COLON ---
Colonoscopy Operative Note Operative Note Date of Service: 05/26/25 Narrative: COLONOSCOPY TILL CECUM WITH SNARE POLYPECTOMY, SUBMUCOSAL INJECTION AND HEMOCLIP PLACEMENT Pre-op diagnosis: Surveillance of colon polyps Post-op diagnosis:? Colon polyp, Diverticulosis, hemorrhoids Endoscopist:? Bolivar Riddle MD Anesthesia:?MAC Consent: Indications for the procedure and potential complications of bleeding, perforation, reaction to medications and missed diagnosis were discussed with the patient and informed consent was obtained. Instrument: Olympus CF H 190 L variable stiffness adult colonoscope Monitoring: Vital signs and clinical assessment, intermittent blood pressure monitoring, continuous EKG monitoring, Pulse oximetry and Carbon Dioxide monitoring were done throughout the procedure. Please see anesthesia flowsheet. Colon withdrawl time was 21 minutes. Procedure: The patient was placed in the left lateral decubitis position and pre-procedure medications were administered. After a digital rectal examination of the ano-rectum, the video colonoscope was inserted into the rectum and advanced through the colon to the cecum. The colonoscope was slowly withdrawn in a retrograde panoramic fashion and the colon mucosa was carefully examined including a retroflexed view of the rectum. Findings and interventions are described below. Procedure Difficulty: without difficulty Findings: Terminal Ileum: Not evaluated Cecum: Normal Ascending Colon: Normal Transverse Colon: Normal Descending Colon: Moderate diverticulosis Sigmoid Colon: A 2.5 cms pedunculated polyp at 20 cms - removed with a hot snare. Polypectomy site was closed with 1 hemoclip and marked with Michelle ink. Moderate diverticulosis Rectum: Normal Ano-rectum: Moderate internal hemorrhoids Colon preparation: Good after copious irrigation and fair in the left colon Hartwick Bowel Preparation Scale Right colon; 2 Transverse colon: 2 Left colon; 1 (0 = Unprepared colon segment with mucosa not seen due to solid stool that cannot be cleared. 1 = Portion of mucosa of the colon segment seen, but other areas of the colon segment not well seen due to staining, residual stool and/or opaque liquid. 2 = Minor amount of residual staining, small fragments of stool and/or opaque liquid, but mucosa of colon segment seen well. 3 = Entire mucosa of colon segment seen well with no residual staining, small fragments of stool or opaque liquid) Impression and Post Procedure Diagnosis: Colonoscopy Findings: One medium sized polyp was removed Moderate diverticulosis seen in the left colon Moderate hemorrhoids on retroflexed exam. Plan: I will send a letter with biopsy results. Repeat Colonoscopy in 3 years if polyp is adenomatous and 5 years if polyps are hyperplastic (due to a history of colon polyps). (Flex Sig in 6 months to check polypectomy site if a biopsies shows advanced histology) Above findings were reviewed with the patient and relevant handouts were given and the discharge area.
[2025-05-26 12:30] VITALS: BP 94/45; PULSE 70; RESP 20; TEMP 36.1; O2SAT 96
[2025-05-26 12:45] VITALS: BP 111/68; PULSE 60; RESP 16; O2SAT 97
[2025-05-26 13:00] VITALS: BP 115/71; PULSE 60; RESP 16; TEMP 36.2; O2SAT 97
== END 2025-05-26 13:42 | disposition home or self-care (01) ==
PROVIDERS: PCP Internal Medicine; Visit Provider Internal Medicine Gastroenterology
PROC: 0DJD8ZZ Inspection of Lower Intestinal Tract, Via Natural or Artificial Opening Endoscopic (ICD-10-PCS; CPT 45378; principal; 2025-05-26 11:50)
DX: Z12.11 Encounter for screening for malignant neoplasm of colon (principal); Z86.0101 Personal history of adenomatous and serrated colon polyps; K64.8 Other hemorrhoids; K57.30 Diverticulosis of large intestine without perforation or abscess without bleeding; D12.5 Benign neoplasm of sigmoid colon
CPT/HCPCS: 45385; 45381; 88305; J2250

== ENCOUNTER → 2025-05-26 09:27 | Outpatient (BNV) | payer OTHER, SELFPAY | PROVIDERS: PCP Internal Medicine; Visit Provider Internal Medicine Gastroenterology | DX: Z12.11 Encounter for screening for malignant neoplasm of colon (principal); K63.5 Polyp of colon; K57.90 Diverticulosis of intestine, part unspecified, without perforation or abscess without bleeding; K64.8 Other hemorrhoids | CPT/HCPCS: 45381; 45385 ==